=== PATIENT | female | born 1965 | race Caucasian/White ===

== ENCOUNTER 2021-06-07 10:58 | Emergency (ER) | payer OTHER ==
[~2021-06-07] VITALS: Ht 162.6 cm; Wt 49.9 kg
[2021-06-07 11:29] VITALS: BP 140/90
--- NOTE | 2021-06-07 11:33 | NUR ---
PT TO AMB 5.
[2021-06-07] MEDS ORDERED: CYCL-711 PO (12:20)
[2021-06-07] MEDS ORDERED: LID5T TP (12:20)
[2021-06-07] MEDS ORDERED: ACET-10509 PO (12:20)
[2021-06-07] MEDS ORDERED: IBUP-2213 PO (12:20)
--- NOTE | 2021-06-07 12:33 | NUR ---
PT TO LOBBY ABLE TO TOLERATE W/C. MADE AWARE.
[2021-06-07] MEDS ORDERED: KETOROLAC 60 MG/2 ML VIAL IM ONE (12:45)
--- NOTE | 2021-06-07 13:09 | NUR ---
Patient discharged with v/s stable. Written and verbal after care instructions ABOUT LUMBAR STRAIN given and explained. Patient alert, oriented and verbalized understanding of instructions. W/C ASSISTED TO CAR. All questions addressed prior to discharge. ID band removed. Patient advised to follow up with PMD. Rx of FLEXERIL, LIDOCAINE PATCH, TYLENOL EXTRA STRENGTH, AND MOTRIN given. Patient educated on indication of medication including possible reaction and side effects. Opportunity to ask questions provided and answered.
== END 2021-06-07 13:09 | disposition home or self-care (01) ==
LOC: MED 10:58
DX: S39.012A Strain of muscle, fascia and tendon of lower back, initial encounter (principal); Z79.899 Other long term (current) drug therapy; X58.XXXA Exposure to other specified factors, initial encounter; Y93.89 Activity, other specified; Y92.89 Other specified places as the place of occurrence of the external cause; Y99.8 Other external cause status
CPT/HCPCS: 99283